=== PATIENT | female | born 1985 | race African-American/Black ===

== ENCOUNTER 2021-10-31 14:48 | Inpatient (IN) | payer BC, MEDICAID ==
[~2021-10-31] VITALS: Ht 162.6 cm; Wt 120.6 kg
[2021-10-31] MEDS ORDERED: MORPHINE SULFATE 4 MG/ML SYR/VIAL IV ONE (18:00)
[2021-10-31] MEDS ORDERED: ONDANSETRON HCL 4 MG/2 ML VIAL IV ONE (18:00)
[2021-10-31 18:24] LABS: Basophils # (auto) 0.1 10 ^3/uL (0-0.2); Hemoglobin 12.1 g/dL (12.2-16.2)
[2021-10-31 18:27] LABS: Basophils % (auto) 0.8 % (0.0-2.0); Eosinophils # (auto) 0 10 ^3/uL (0-0.8); Eosinophils % (auto) 0.5 % (0.0-7.0); Hematocrit 37.2 % (36.0-46.0); Lymphocytes # (auto) 1.4 10 ^3/uL (0.4-5.4); Lymphocytes % (auto) 15.1 % (10.0-50.0); Mean Corpuscular Hemoglobin 25.2 pg (28.0-32.0); Mean Corpuscular Hgb Conc. 32.7 g/dL (32.0-36.0); Mean Corpuscular Volume 77.2 fL (80.0-100.0); Monocytes # (auto) 0.8 10 ^3/uL (0-1.3); Monocytes % (auto) 8.7 % (0.0-12.0); Neutrophils % (auto) 74.9 % (37.0-80.0); Red Blood Cells 4.82 10^6/uL (4.0-5.20); Red Cell Distribution Width 18.5 % (11.8-14.3); White Blood Cell 9.3 10^3/uL (4.4-10.8)
[2021-10-31 18:38] LABS: BUN/Creatinine Ratio 34.1; Calcium 9.8 mg/dL (8.5-10.1); Potassium 3.9 mmol/L (3.5-5.1)
[2021-10-31 19:16] LABS: INR 1.12 (0.9-1.15)
[2021-10-31] MEDS ORDERED: FAMO20TA10 GT (19:59)
[2021-10-31] MEDS ORDERED: METO25TA5 PO (19:59)
[2021-10-31] MEDS ORDERED: INSU100I51 SC (19:59)
[2021-10-31] MEDS ORDERED: HYD1TP TOP (19:59)
[2021-10-31] MEDS ORDERED: PANC1CAP PO (19:59)
[2021-10-31] MEDS ORDERED: PREG100C PO (19:59)
[2021-10-31] MEDS ORDERED: ONDANSETRON HCL 4 MG/2 ML VIAL IV PRN (21:00)
[2021-10-31] MEDS ORDERED: DEXTROSE (50%) 50ML SYRG IV PRN (21:00)
[2021-10-31 22:18] VITALS: BP 141/84
[2021-11-01] VITALS: BP 141/84
[2021-11-01] MEDS: ACCU-CHEK COMFORT CURVE STRIP VI SCH ×5 (00:16→23:40)
[2021-11-01] MEDS: SODIUM CHLORIDE 0.9% 1,000 ML IV SCH ×3 (00:17→21:40)
[2021-11-01] MEDS ORDERED: MORPHINE SULFATE INJECTION 2 MG/ML SYRG IV ONE (02:15)
[2021-11-01 05:00] VITALS: BP 132/84
[2021-11-01] MEDS: InsuLIN REG 1unit/0.01ml Soln (100units/ml) SC SCH ×5 (05:12→23:40)
[2021-11-01] MEDS ORDERED: OXY5T GT (05:28)
[2021-11-01] MEDS ORDERED: GLYC1SOL PO (05:28)
[2021-11-01] MEDS ORDERED: PRED10TA PO (05:28)
[2021-11-01] MEDS ORDERED: PETROIN22 EX (05:28)
[2021-11-01] MEDS ORDERED: SENN-199 PO (05:28)
[2021-11-01] MEDS ORDERED: METO-158 PO (05:28)
[2021-11-01] MEDS ORDERED: SCOP1DIS9 TD (05:28)
[2021-11-01] MEDS ORDERED: LIDOCAINE VISCOUS 2% 15ML UD ONE (08:44)
[2021-11-01] MEDS ORDERED: diphenhdrAMINE HCL 50 MG/1 ML VL ONE (08:44)
[2021-11-01 09:00] VITALS: BP 132/77
[2021-11-01 09:41] LABS: Urine Amorphous Crystal FEW /hpf (None Seen); Urine Bacteria NONE SEEN /hpf (None Seen); Urine Blood Negative /uL (Negative); Urine Specific Gravity 1.019 (1.001-1.035); Urine WBC 14 /hpf (0 - 5)
[2021-11-01] MEDS: PANTOPRAZOLE 40 MG/10 ML VIAL INJ IV SCH (10:43)
[2021-11-01] MEDS ORDERED: cefTRIAXone 1GM/50ML D5W 50 ML IV ONE (12:00)
[2021-11-01 13:00] VITALS: BP 131/79
[2021-11-01] MEDS ORDERED: MORPHINE SULFATE INJECTION 2 MG/ML SYRG IV PRN (13:15)
[2021-11-01] MEDS ORDERED: ceFAZolin 1GM/50ML 50 ML IV ONE (13:17)
[2021-11-01] MEDS: MIDAZOLAM HCL 5 MG/ML-1ML VIAL ONE ×3 (13:32→13:43)
[2021-11-01] MEDS: fentaNYL CITRATE 100 MCG/2 ML VL ONE ×3 (13:32→13:43)
[2021-11-01] MEDS: PREGABALIN 25 MG CAP GT SCH ×2 (14:00→21:41)
[2021-11-01] MEDS ORDERED: METOPROLOL TARTRATE 1MG/1ML-5ML VIAL IV SCH (16:45)
[2021-11-01 16:49] VITALS: BP 133/82
[2021-11-01] MEDS: PANCREATIC ENZYMES 4200 UNIT CAP PO SCH (17:53)
[2021-11-01] MEDS: DexAMETHasone SOD PHOS 4 MG/1ML SDV INJ IV SCH (19:01)
[2021-11-01] MEDS: MORPHINE SULFATE INJECTION 2 MG/ML SYRG IV PRN (19:03)
[2021-11-01] MEDS: METOPROLOL TARTRATE 1MG/1ML-5ML VIAL IV SCH (21:38)
[2021-11-01] MEDS: HYDROCORTONE 1% TOPICAL CREAM 30 GM TUBE TOP SCH (21:39)
[2021-11-01 22:00] VITALS: BP 132/84
[2021-11-01] MEDS ORDERED: METOPROLOL TARTRATE 50 MG TAB GT SCH (22:00)
[2021-11-02 04:59] VITALS: BP 132/87
[2021-11-02] MEDS: ACCU-CHEK COMFORT CURVE STRIP VI SCH ×4 (05:30→23:46)
[2021-11-02] MEDS: InsuLIN REG 1unit/0.01ml Soln (100units/ml) SC SCH ×4 (05:30→23:46)
[2021-11-02] MEDS: PREGABALIN 25 MG CAP GT SCH ×3 (06:00→21:44)
[2021-11-02] MEDS: PANCREATIC ENZYMES 4200 UNIT CAP PO SCH ×3 (08:00→18:54)
[2021-11-02] MEDS: cefTRIAXone 1GM/50ML D5W 50 ML IV SCH (08:40)
[2021-11-02] MEDS: PANTOPRAZOLE 40 MG/10 ML VIAL INJ IV SCH (08:40)
[2021-11-02] MEDS: DexAMETHasone SOD PHOS 4 MG/1ML SDV INJ IV SCH (08:40)
[2021-11-02 09:00] VITALS: BP 133/89
[2021-11-02] MEDS: METOPROLOL TARTRATE 1MG/1ML-5ML VIAL IV SCH ×2 (09:30→21:43)
[2021-11-02] MEDS ORDERED: predniSONE 5 MG TAB GT SCH (10:00)
[2021-11-02] MEDS: SODIUM CHLORIDE 0.9% 1,000 ML IV SCH ×2 (10:00→23:09)
[2021-11-02] MEDS: HYDROCORTONE 1% TOPICAL CREAM 30 GM TUBE TOP SCH ×2 (10:03→21:44)
[2021-11-02 13:00] VITALS: BP 137/95
[2021-11-02] MEDS: Glucerna 1.2 Cal 1Liter BOTTLE GT SCH ×2 (14:11→21:44)
[2021-11-02 16:50] VITALS: BP 130/82
[2021-11-02 22:00] VITALS: BP 144/95
[2021-11-03] MEDS: MORPHINE SULFATE INJECTION 2 MG/ML SYRG IV PRN ×2 (04:39→21:11)
[2021-11-03 05:00] VITALS: BP 142/88
[2021-11-03] MEDS: ACCU-CHEK COMFORT CURVE STRIP VI SCH ×4 (05:39→23:41)
[2021-11-03] MEDS: Glucerna 1.2 Cal 1Liter BOTTLE GT SCH ×3 (05:39→21:42)
[2021-11-03] MEDS: PREGABALIN 25 MG CAP GT SCH ×3 (05:39→21:42)
[2021-11-03] MEDS: InsuLIN REG 1unit/0.01ml Soln (100units/ml) SC SCH ×4 (05:40→23:41)
[2021-11-03 09:00] VITALS: BP 137/77
[2021-11-03] MEDS: PANCREATIC ENZYMES 4200 UNIT CAP PO SCH ×4 (09:37→21:41)
[2021-11-03] MEDS: cefTRIAXone 1GM/50ML D5W 50 ML IV SCH (09:37)
[2021-11-03] MEDS: DexAMETHasone SOD PHOS 4 MG/1ML SDV INJ IV SCH (09:38)
[2021-11-03] MEDS: METOPROLOL TARTRATE 1MG/1ML-5ML VIAL IV SCH ×2 (09:39→21:41)
[2021-11-03] MEDS: HYDROCORTONE 1% TOPICAL CREAM 30 GM TUBE TOP SCH ×2 (09:39→22:19)
[2021-11-03] MEDS: SODIUM CHLORIDE 0.9% 1,000 ML IV SCH (12:30)
[2021-11-03 12:33] VITALS: BP 126/92
[2021-11-03 17:00] VITALS: BP 123/76
[2021-11-03] MEDS ORDERED: ACETAMINOPHEN 500 MG TAB PO PRN (18:15)
[2021-11-03] MEDS ORDERED: LACTULOSE 20Gm/30ML SOLN PEG ONE (18:15)
[2021-11-03 22:00] VITALS: BP 141/95
[2021-11-04] MEDS: SODIUM CHLORIDE 0.9% 1,000 ML IV SCH ×2 (00:21→13:04)
[2021-11-04 04:53] VITALS: BP 120/78
[2021-11-04] MEDS: InsuLIN REG 1unit/0.01ml Soln (100units/ml) SC SCH ×3 (06:00→17:22)
[2021-11-04] MEDS: Glucerna 1.2 Cal 1Liter BOTTLE GT SCH ×3 (06:00→22:57)
[2021-11-04] MEDS: PREGABALIN 25 MG CAP GT SCH ×3 (06:00→22:57)
[2021-11-04] MEDS: ACCU-CHEK COMFORT CURVE STRIP VI SCH ×4 (06:01→23:57)
[2021-11-04 09:00] VITALS: BP 124/89
[2021-11-04] MEDS: cefTRIAXone 1GM/50ML D5W 50 ML IV SCH (09:03)
[2021-11-04] MEDS: DexAMETHasone SOD PHOS 4 MG/1ML SDV INJ IV SCH (09:03)
[2021-11-04] MEDS: METOPROLOL TARTRATE 1MG/1ML-5ML VIAL IV SCH ×2 (09:03→22:58)
[2021-11-04] MEDS: HYDROCORTONE 1% TOPICAL CREAM 30 GM TUBE TOP SCH ×2 (11:11→22:58)
[2021-11-04 13:00] VITALS: BP 119/83
[2021-11-04] MEDS: MORPHINE SULFATE INJECTION 2 MG/ML SYRG IV PRN ×2 (13:01→22:30)
[2021-11-04] MEDS: PANCREATIC ENZYMES 4200 UNIT CAP PO SCH ×2 (13:03→13:20)
[2021-11-04] MEDS ORDERED: levoFLOXacin 500MG 100 ML IV ONE (16:15)
[2021-11-04 17:00] VITALS: BP 124/88
[2021-11-04 20:00] VITALS: BP 133/83
[2021-11-04 21:51] VITALS: BP 133/83
[2021-11-05] MEDS: SODIUM CHLORIDE 0.9% 1,000 ML IV SCH ×2 (01:00→06:00)
[2021-11-05 04:49] VITALS: BP 141/87
[2021-11-05] MEDS: InsuLIN REG 1unit/0.01ml Soln (100units/ml) SC SCH ×3 (05:48→12:00)
[2021-11-05] MEDS: ACCU-CHEK COMFORT CURVE STRIP VI SCH ×2 (05:48→15:10)
[2021-11-05] MEDS: PREGABALIN 25 MG CAP GT SCH ×2 (06:07→13:00)
[2021-11-05] MEDS: Glucerna 1.2 Cal 1Liter BOTTLE GT SCH ×2 (06:07→14:00)
[2021-11-05 06:32] LABS: Eosinophils # (auto) 0 10 ^3/uL (0-0.8); Hemoglobin 10.7 g/dL (12.2-16.2); Lymphocytes # (auto) 1.3 10 ^3/uL (0.4-5.4)
[2021-11-05 06:36] LABS: Basophils # (auto) 0.1 10 ^3/uL (0-0.2); Basophils % (auto) 0.7 % (0.0-2.0); Eosinophils % (auto) 0.3 % (0.0-7.0); Hematocrit 32.9 % (36.0-46.0); Mean Corpuscular Hemoglobin 25.9 pg (28.0-32.0); Mean Corpuscular Hgb Conc. 32.4 g/dL (32.0-36.0); Mean Corpuscular Volume 79.8 fL (80.0-100.0); Monocytes # (auto) 0.8 10 ^3/uL (0-1.3); Monocytes % (auto) 11.3 % (0.0-12.0); Neutrophils # (auto) 5.3 10 ^3/uL (1.6-8.6); Neutrophils % (auto) 70.7 % (37.0-80.0); Nucleated Red Blood Cells % 0.1 %; Red Blood Cells 4.12 10^6/uL (4.0-5.20); Red Cell Distribution Width 17.8 % (11.8-14.3); White Blood Cell 7.5 10^3/uL (4.4-10.8)
[2021-11-05 06:43] LABS: Calcium 8.8 mg/dL (8.5-10.1); Potassium 3.2 mmol/L (3.5-5.1)
[2021-11-05 06:47] LABS: Albumin 2.6 g/dL (3.4-5.0)
[2021-11-05 07:06] LABS: Bilirubin, Total 0.3 mg/dL (0.2-1.0); Total Protein 5.9 g/dL (6.4-8.2)
[2021-11-05] MEDS ORDERED: LEVO500T31 PO (08:12)
[2021-11-05] MEDS ORDERED: PREG75CA PO (08:16)
[2021-11-05] MEDS: PANCREATIC ENZYMES 4200 UNIT CAP PO SCH ×2 (08:18→12:25)
[2021-11-05] MEDS ORDERED: PANC1CAP PO (08:19)
[2021-11-05] MEDS ORDERED: FAMO20TA10 PO (08:19)
[2021-11-05] MEDS ORDERED: METO25TA5 PO (08:19)
[2021-11-05] MEDS: METOPROLOL TARTRATE 1MG/1ML-5ML VIAL IV SCH (08:19)
[2021-11-05] MEDS ORDERED: PRED10TA PO (08:19)
[2021-11-05] MEDS: DexAMETHasone SOD PHOS 4 MG/1ML SDV INJ IV SCH (08:19)
[2021-11-05] MEDS ORDERED: OXY5T GT (08:19)
[2021-11-05 08:35] VITALS: BP 118/76
[2021-11-05] MEDS ORDERED: POTASSIUM EFFERVESENT TAB 25 MEQ GT ONE (08:45)
[2021-11-05] MEDS: HYDROCORTONE 1% TOPICAL CREAM 30 GM TUBE TOP SCH (09:39)
[2021-11-05] MEDS ORDERED: levoFLOXacin 500MG 100 ML IV SCH (10:00)
[2021-11-05 10:39] VITALS: BP 118/70
[2021-11-05 12:27] VITALS: BP 115/87
== END 2021-11-05 13:35 | disposition home or self-care (01) | DRG 393 ==
LOC: ER 14:48 → OVERFLOW 21:00 → CENTRAL 22:18 → TELE-CENTR 11-01 18:16
PROVIDERS: ADMIT Nurse Practitioner; ATTEND Family Medicine
PROC: 0DH63UZ Insertion of Feeding Device into Stomach, Percutaneous Approach (ICD-10-PCS; principal; 2021-11-01 13:27)
DX: Z43.1 Encounter for attention to gastrostomy (principal); E43 Unspecified severe protein-calorie malnutrition; L89.93 Pressure ulcer of unspecified site, stage 3; N39.0 Urinary tract infection, site not specified; Z68.42 Body mass index [BMI] 45.0-49.9, adult; G35 Multiple sclerosis; E11.9 Type 2 diabetes mellitus without complications; B95.2 Enterococcus as the cause of diseases classified elsewhere; I10 Essential (primary) hypertension; I95.9 Hypotension, unspecified; Z20.822 Contact with and (suspected) exposure to COVID-19; Z74.01 Bed confinement status; Z80.9 Family history of malignant neoplasm, unspecified
CPT/HCPCS: 36415; 43246; 71045; 80048; 80053; 81001; 82962; 84443; 84702; 85025; 85610; 86850; 86900; 86901; 87081; 87086; 87088; 87186; 93005; 96374; 96375; 97110; 97163; 97530; C9113; G0378; J0690; J0696; J1100; J1956; J2250; J2405

== ENCOUNTER 2021-12-30 10:51 | Inpatient (IN) | payer BC, MEDICAID ==
[~2021-12-30] VITALS: Ht 162.6 cm; Wt 45.5 kg
[~2021-12-30 10:51] MED LIST: FAMO20TA10 GT; FAMO20TA10 PO; GLYC1SOL PO; HYD1TP TOP; INSU100I51 SC; LEVO500T31 PO; METO-158 PO; METO25TA5 PO; OXY5T GT; PANC1CAP PO; PETROIN22 EX; PRED10TA PO; PREG100C PO; PREG75CA PO; SCOP1DIS9 TD; SENN-199 PO
[2021-12-30] MEDS ORDERED: MORPHINE SULFATE 4 MG/ML SYR/VIAL IV ONE ×2 (11:15→21:00)
[2021-12-30] MEDS ORDERED: ONDANSETRON HCL 4 MG/2 ML VIAL IV ONE (11:15)
[2021-12-30] MEDS ORDERED: SODIUM CHLORIDE 0.9% 1,000 ML IVB ONE (11:15)
[2021-12-30 11:54] LABS: Eosinophils # (auto) 0.2 10 ^3/uL (0-0.8); Monocytes # (auto) 0.6 10 ^3/uL (0-1.3)
[2021-12-30 11:57] LABS: Basophils # (auto) 0.1 10 ^3/uL (0-0.2); Basophils % (auto) 0.9 % (0.0-2.0); Hematocrit 35.1 % (36.0-46.0); Hemoglobin 11.9 g/dL (12.2-16.2); Lymphocytes # (auto) 1.1 10 ^3/uL (0.4-5.4); Lymphocytes % (auto) 18.8 % (10.0-50.0); Mean Corpuscular Hemoglobin 26.5 pg (28.0-32.0); Mean Corpuscular Hgb Conc. 33.8 g/dL (32.0-36.0); Mean Corpuscular Volume 78.4 fL (80.0-100.0); Neutrophils % (auto) 67.3 % (37.0-80.0); Red Blood Cells 4.47 10^6/uL (4.0-5.20)
[2021-12-30 12:22] LABS: Potassium 4.3 mmol/L (3.5-5.1)
[2021-12-30 12:29] LABS: Albumin 3.2 g/dL (3.4-5.0); BUN/Creatinine Ratio 45.5; Bilirubin, Total 0.3 mg/dL (0.2-1.0); Calcium 9.3 mg/dL (8.5-10.1); Total Protein 7.1 g/dL (6.4-8.2)
[2021-12-30 13:08] LABS: Urine Bacteria NONE SEEN /hpf (None Seen); Urine Blood Negative /uL (Negative); Urine Specific Gravity 1.011 (1.001-1.035); Urine WBC <1 /hpf (0 - 5)
[2021-12-30] MEDS ORDERED: HYDROmorphone HCL 2 MG/ML VL/or syr IV PRN (14:00)
[2021-12-30] MEDS ORDERED: MORPHINE SULFATE INJ 2 MG/ml SYRG IV PRN (15:00)
[2021-12-30] MEDS ORDERED: ACETAMINOPHEN 325 MG TAB PO PRN (15:00)
[2021-12-30] MEDS ORDERED: ONDANSETRON HCL 4 MG/2 ML VIAL IV PRN ×2 (15:00→21:00)
[2021-12-30] MEDS ORDERED: NITROGLYCERIN 0.4 MG SL TAB SL PRN (15:00)
[2021-12-30] MEDS: MORPHINE SULFATE INJ 2 MG/ml SYRG IV PRN ×2 (15:19→19:01)
[2021-12-30] MEDS: SODIUM CHLORIDE 0.9% 1,000 ML IV SCH ×2 (15:34→23:22)
[2021-12-31] MEDS ORDERED: MORPHINE SULFATE 4 MG/ML SYR/VIAL IV ONE (05:30)
[2021-12-31 07:39] LABS: Basophils # (auto) 0 10 ^3/uL (0-0.2); Basophils % (auto) 0.6 % (0.0-2.0); Eosinophils # (auto) 0.2 10 ^3/uL (0-0.8); Mean Corpuscular Volume 79.8 fL (80.0-100.0); White Blood Cell 4.9 10^3/uL (4.4-10.8)
[2021-12-31 07:41] LABS: Eosinophils % (auto) 3.3 % (0.0-7.0); Hematocrit 33.2 % (36.0-46.0); Hemoglobin 10.8 g/dL (12.2-16.2); Lymphocytes # (auto) 1.2 10 ^3/uL (0.4-5.4); Lymphocytes % (auto) 23.6 % (10.0-50.0); Mean Corpuscular Hemoglobin 26.1 pg (28.0-32.0); Mean Corpuscular Hgb Conc. 32.7 g/dL (32.0-36.0); Monocytes # (auto) 0.6 10 ^3/uL (0-1.3); Monocytes % (auto) 12.1 % (0.0-12.0); Neutrophils % (auto) 60.4 % (37.0-80.0); Red Blood Cells 4.16 10^6/uL (4.0-5.20); Red Cell Distribution Width 20.1 % (11.8-14.3)
[2021-12-31 07:52] LABS: Calcium 9.1 mg/dL (8.5-10.1); Potassium 4.1 mmol/L (3.5-5.1)
[2021-12-31 07:56] LABS: Bilirubin, Total 0.3 mg/dL (0.2-1.0); Total Protein 6.4 g/dL (6.4-8.2)
[2021-12-31] MEDS: SODIUM CHLORIDE 0.9% 1,000 ML IV SCH (08:39)
[2021-12-31] MEDS: HYDROmorphone HCL 2 MG/ML VL/or syr IV PRN ×2 (09:31→13:19)
[2021-12-31] MEDS ORDERED: ENOXAPARIN SOD 40 MG/0.4 ML SYRINGE SC SCH (10:00)
[2021-12-31] MEDS ORDERED: VANCOMYCIN PER PHARMACY 0 MG IV SCH ×2 (10:30)
[2021-12-31] MEDS ORDERED: VANCOMYCIN 750mg/250ml 250 ML IV ONE (11:00)
[2021-12-31 15:00] VITALS: BP 103/76
[2021-12-31] MEDS ORDERED: VANCOMYCIN 750mg/250ml 250 ML IV SCH (21:00)
== END 2021-12-31 15:12 | disposition short-term general hospital (02) | DRG 43 ==
LOC: ER 10:51 → TELE 14:48
PROVIDERS: ADMIT Internal Medicine; ATTEND Internal Medicine
DX: G35 Multiple sclerosis (principal); G93.40 Encephalopathy, unspecified; E46 Unspecified protein-calorie malnutrition; G82.50 Quadriplegia, unspecified; E88.09 Other disorders of plasma-protein metabolism, not elsewhere classified; H46.9 Unspecified optic neuritis; R13.10 Dysphagia, unspecified; Z20.822 Contact with and (suspected) exposure to COVID-19; R47.01 Aphasia; Z74.01 Bed confinement status; Z80.3 Family history of malignant neoplasm of breast; Z93.1 Gastrostomy status; B96.89 Other specified bacterial agents as the cause of diseases classified elsewhere
CPT/HCPCS: 36415; 70450; 71045; 80053; 81001; 82962; 83605; 85025; 87040; 87077; 87186; 96361; 96365; 96372; 96375; 96376; G0378; J2405

== ENCOUNTER 2022-03-30 09:07 | Day surgery (SDC) | payer MEDICAID ==
[2022-03-23 14:56] LABS: Basophils # (auto) 0.1 10 ^3/uL (0-0.2); Basophils % (auto) 1.4 % (0.0-2.0); Eosinophils # (auto) 0.2 10 ^3/uL (0-0.8); Eosinophils % (auto) 4.1 % (0.0-7.0); Hematocrit 37.3 % (36.0-46.0); Hemoglobin 11.8 g/dL (12.2-16.2); Lymphocytes # (auto) 1.5 10 ^3/uL (0.4-5.4); Lymphocytes % (auto) 28.9 % (10.0-50.0); Mean Corpuscular Hemoglobin 28.6 pg (28.0-32.0); Mean Corpuscular Hgb Conc. 31.6 g/dL (32.0-36.0); Mean Corpuscular Volume 90.3 fL (80.0-100.0); Monocytes # (auto) 0.5 10 ^3/uL (0-1.3); Monocytes % (auto) 9.4 % (0.0-12.0); Neutrophils # (auto) 2.9 10 ^3/uL (1.6-8.6); Neutrophils % (auto) 56.2 % (37.0-80.0); Nucleated Red Blood Cells % 0.1 %; Red Blood Cells 4.13 10^6/uL (4.0-5.20); Red Cell Distribution Width 17.4 % (11.8-14.3); White Blood Cell 5.1 10^3/uL (4.4-10.8)
[2022-03-23 15:13] LABS: INR 1.03 (0.9-1.15); Partial Thromboplastin Time 29.3 sec (24.6-33.4)
[2022-03-23 15:22] LABS: Albumin 3.3 g/dL (3.4-5.0); BUN/Creatinine Ratio 48.9; Calcium 8.9 mg/dL (8.5-10.1); Potassium 3.9 mmol/L (3.5-5.1)
[2022-03-23 15:25] LABS: Bilirubin, Total 0.2 mg/dL (0.2-1.0); Total Protein 6.8 g/dL (6.4-8.2)
[~2022-03-30] VITALS: Ht 162.6 cm; Wt 47.6 kg
[~2022-03-30 09:07] MED LIST changes: +DIAZ2TAB2 PO; +DOCU100T23 PO; -FAMO20TA10 PO; +GABA400C PO; +GLYC1DRO OP; +HYDR-4902 PO; +HYDR2TAB58 PO; -INSU100I51 SC; -LEVO500T31 PO; -METO25TA5 PO; +NS45NSL; -OXY5T GT; -PRED10TA PO; -PREG100C PO; -PREG75CA PO; -SENN-199 PO; +TRAM50TA2 PO
[2022-03-30] MEDS ORDERED: diphenhdrAMINE HCL 50 MG/1 ML VL ONE (11:20)
[2022-03-30] MEDS ORDERED: SODIUM CHLORIDE LOCK 10 ML ONE (11:20)
[2022-03-30] MEDS ORDERED: LIDOCAINE VISCOUS 2% 15ML UD ONE (11:20)
[2022-03-30] MEDS ORDERED: ceFAZolin 1GM/50ML 50 ML IV ONE (11:50)
[2022-03-30] MEDS: MIDAZOLAM HCL 5 MG/ML-1ML VIAL ONE ×3 (12:07→12:15)
[2022-03-30] MEDS: fentaNYL CITRATE 100 MCG/2 ML VL ONE ×3 (12:07→12:15)
[2022-03-30 13:45] VITALS: BP 124/88
== END 2022-03-30 14:40 | disposition home or self-care (01) ==
LOC: GI 09:07
PROVIDERS: ATTEND Internal Medicine Gastroenterology
DX: R13.10 Dysphagia, unspecified (principal); K94.23 Gastrostomy malfunction; K29.50 Unspecified chronic gastritis without bleeding; F41.9 Anxiety disorder, unspecified; Z80.3 Family history of malignant neoplasm of breast; Z20.822 Contact with and (suspected) exposure to COVID-19
CPT/HCPCS: 36415; 43239; 43246; 80053; 84702; 85025; 85610; 85730; 88305; 88342; J0690; J1200; J2250; J3010; U0003; 99152

== ENCOUNTER 2022-03-31 13:21 | Emergency (ER) | payer MEDICAID | END 2022-03-31 14:38 | disposition home or self-care (01) | LOC: ER 13:21 | DX: K94.23 Gastrostomy malfunction (principal) ==

== ENCOUNTER 2022-08-05 09:57 | Emergency (ER) | payer MEDICAID ==
[~2022-08-05] VITALS: Ht 162.6 cm; Wt 50.0 kg
[2022-08-05] MEDS ORDERED: LIDOCAINE 2%HCL (LOCAL ANESTH.) INJ 10ml MDV ONE (12:46)
[2022-08-05] MEDS ORDERED: LIDOCAINE HCL 2% TOP JELLY 5ML TOP ONE (14:00)
[2022-08-05] MEDS ORDERED: LIDOCAINE 2% JELLY 11ml (GLYDO) ONE (14:49)
[2022-08-05] MEDS ORDERED: LIDOCAINE 2% JELLY 11ml (GLYDO) UR ONE (15:00)
[2022-08-05] MEDS ORDERED: GASTROGRAFIN 30 ML SOL ONE (15:21)
[2022-08-05] MEDS ORDERED: SODIENE35 RE (17:34)
[2022-08-05 17:46] VITALS: BP 144/104
== END 2022-08-05 17:52 | disposition home or self-care (01) ==
LOC: ER 09:57
DX: K94.23 Gastrostomy malfunction (principal); G35 Multiple sclerosis; G82.50 Quadriplegia, unspecified; Z79.899 Other long term (current) drug therapy
CPT/HCPCS: 43762; 74018; 99284; J2001; Q9963

== ENCOUNTER 2022-09-05 21:15 | Inpatient (IN) | payer MEDICAID ==
[~2022-09-05] VITALS: Ht 162.6 cm; Wt 47.0 kg
[~2022-09-05 21:15] MED LIST changes: +MET25T GT; -METO-158 PO; +PREG-111 PO; +QUET100T47 PO; +SODIENE35 RE
[2022-09-05] MEDS ORDERED: IOHEXOL 300 MG/ML 100ML BOTTLE IJ ONE (21:33)
[2022-09-05 22:32] LABS: Basophils # (auto) 0.1 10 ^3/uL (0-0.2); Basophils % (auto) 1.2 % (0.0-2.0); Eosinophils # (auto) 0.2 10 ^3/uL (0-0.8); Eosinophils % (auto) 3.6 % (0.0-7.0); Hematocrit 31.3 % (36.0-46.0); Hemoglobin 10.1 g/dL (12.2-16.2); Lymphocytes # (auto) 1.4 10 ^3/uL (0.4-5.4); Lymphocytes % (auto) 30.5 % (10.0-50.0); Mean Corpuscular Hemoglobin 26.8 pg (28.0-32.0); Mean Corpuscular Hgb Conc. 32.3 g/dL (32.0-36.0); Mean Corpuscular Volume 82.8 fL (80.0-100.0); Monocytes # (auto) 0.6 10 ^3/uL (0-1.3); Neutrophils # (auto) 2.4 10 ^3/uL (1.6-8.6); Neutrophils % (auto) 51.7 % (37.0-80.0); Red Blood Cells 3.77 10^6/uL (4.0-5.20); Red Cell Distribution Width 15.7 % (11.8-14.3); White Blood Cell 4.7 10^3/uL (4.4-10.8)
[2022-09-05 22:46] LABS: INR 1.1 (0.9-1.15); Partial Thromboplastin Time 29.5 sec (24.6-33.4)
[2022-09-05 22:50] LABS: Albumin 2.9 g/dL (3.4-5.0); Anion Gap 6 (5-15); Blood Urea Nitrogen 21 mg/dL (7-18); Calcium 8.1 mg/dL (8.5-10.1); Carbon Dioxide 28 mmol/L (21-32); Chloride 106 mmol/L (98-107); Glucose 83 mg/dL (74-106); Lipase 42 U/L (73-393); Potassium 3.8 mmol/L (3.5-5.1); Sodium 140 mmol/L (136-145)
[2022-09-05 22:54] LABS: Alanine Aminotransferase < 6 U/L (13-56); Alkaline Phosphatase 65 U/L (45-117); Aspartate Aminotransferase 11 U/L (15-37); BUN/Creatinine Ratio 40.4; Bilirubin, Total 0.3 mg/dL (0.2-1.0); GFR African American 172 mL/min; GFR Non-African American 142 mL/min
[2022-09-06] MEDS ORDERED: HYDROmorphone HCL 2 MG/ML VL/or syr IV ONE (00:15)
[2022-09-06] MEDS ORDERED: ONDANSETRON HCL 4 MG/2 ML VIAL IV ONE (00:15)
[2022-09-06] MEDS ORDERED: ONDANSETRON HCL 4 MG/2 ML VIAL IV PRN (01:15)
[2022-09-06 01:19] LABS: Basophils # (auto) 0.1 10 ^3/uL (0-0.2); Basophils % (auto) 1.5 % (0.0-2.0); Eosinophils # (auto) 0.2 10 ^3/uL (0-0.8); Hematocrit 32.9 % (36.0-46.0); Hemoglobin 10.6 g/dL (12.2-16.2); Lymphocytes # (auto) 1.6 10 ^3/uL (0.4-5.4); Lymphocytes % (auto) 28.2 % (10.0-50.0); Mean Corpuscular Hemoglobin 26.8 pg (28.0-32.0); Mean Corpuscular Hgb Conc. 32.3 g/dL (32.0-36.0); Mean Corpuscular Volume 82.8 fL (80.0-100.0); Monocytes # (auto) 0.7 10 ^3/uL (0-1.3); Neutrophils % (auto) 54.3 % (37.0-80.0); Nucleated Red Blood Cells % 0.1 %; Red Blood Cells 3.98 10^6/uL (4.0-5.20); Red Cell Distribution Width 16.1 % (11.8-14.3); White Blood Cell 5.5 10^3/uL (4.4-10.8)
[2022-09-06] MEDS: D5W/SOD CHLO 0.9% 1,000 ML IV SCH ×2 (01:35→14:38)
[2022-09-06] MEDS: MORPHINE SULFATE INJ 2 MG/ml SYRG IV PRN ×2 (06:20→15:35)
[2022-09-06] MEDS: PANTOPRAZOLE 40 MG/10 ML VIAL INJ IV SCH (09:44)
[2022-09-06] MEDS: GABAPENTIN 400 MG CAP GT SCH ×3 (09:44→19:30)
[2022-09-06] MEDS: ENOXAPARIN SOD 40 MG/0.4 ML SYRINGE SC SCH (09:44)
[2022-09-06] MEDS ORDERED: cefTRIAXone 1GM/50ML D5W 50 ML IV ONE (19:15)
[2022-09-07] MEDS: MORPHINE SULFATE INJ 2 MG/ml SYRG IV PRN (02:50)
[2022-09-07 04:43] VITALS: BP_SYST 140; BP_SYST 149; BP_DIAS 80; BP_DIAS 81
[2022-09-07] MEDS: D5W/SOD CHLO 0.9% 1,000 ML IV SCH ×2 (05:09→17:15)
[2022-09-07 05:19] LABS: BUN/Creatinine Ratio 44.7; Calcium 8.7 mg/dL (8.5-10.1); Potassium 4.1 mmol/L (3.5-5.1)
[2022-09-07] MEDS ORDERED: GABAPENTIN 400 MG CAP PO ONE (06:00)
[2022-09-07 09:18] VITALS: BP 113/63
[2022-09-07] MEDS: ENOXAPARIN SOD 40 MG/0.4 ML SYRINGE SC SCH (10:18)
[2022-09-07] MEDS: PANTOPRAZOLE 40 MG/10 ML VIAL INJ IV SCH (10:18)
[2022-09-07 12:49] VITALS: BP 127/57
[2022-09-07] MEDS: GABAPENTIN 400 MG CAP GT SCH ×2 (13:07→22:54)
[2022-09-07] MEDS: PREGABALIN CAPSULE 75 MG CAP PO SCH ×2 (13:08→22:55)
[2022-09-07 16:49] VITALS: BP 129/68
[2022-09-07 22:00] VITALS: BP 131/72
[2022-09-07] MEDS: DOCUSATE SOD 100 MG CAP PO SCH (22:00)
[2022-09-07] MEDS: HYDROCORTONE 1% TOPICAL CREAM 30 GM TUBE TOP SCH (22:54)
[2022-09-08 05:00] VITALS: BP 124/70
[2022-09-08] MEDS: D5W/SOD CHLO 0.9% 1,000 ML IV SCH ×3 (07:15→11:08)
[2022-09-08] MEDS: PREGABALIN CAPSULE 75 MG CAP PO SCH ×3 (07:15→22:19)
[2022-09-08] MEDS: GABAPENTIN 400 MG CAP GT SCH ×3 (07:15→22:19)
[2022-09-08 08:51] VITALS: BP 136/75
[2022-09-08] MEDS: DOCUSATE SOD 100 MG CAP PO SCH ×3 (10:00→22:19)
[2022-09-08] MEDS: PANTOPRAZOLE 40 MG/10 ML VIAL INJ IV SCH (10:18)
[2022-09-08] MEDS: ENOXAPARIN SOD 40 MG/0.4 ML SYRINGE SC SCH (10:19)
[2022-09-08] MEDS: HYDROCORTONE 1% TOPICAL CREAM 30 GM TUBE TOP SCH ×2 (10:23→22:19)
[2022-09-08] MEDS ORDERED: HYDROcodone-ACET 5/325MG TAB PO PRN (11:30)
[2022-09-08 13:00] VITALS: BP 96/53
[2022-09-08] MEDS ORDERED: MIDAZOLAM HCL 2MG/2ML 2ml VIAL (1mg/ml) ONE (14:01)
[2022-09-08] MEDS ORDERED: fentaNYL CITRATE 100 MCG/2 ML VL ONE (14:05)
[2022-09-08] MEDS ORDERED: PROPOFOL 10 MG/ML 20 ML IV ONE (14:28)
[2022-09-08] MEDS ORDERED: ONDANSETRON HCL 4 MG/2 ML VIAL IV PRN (14:45)
[2022-09-08] MEDS ORDERED: ceFAZolin 1GM VL ONE (15:09)
[2022-09-08 17:00] VITALS: BP 102/63
[2022-09-08 22:00] VITALS: BP 128/72
[2022-09-08] MEDS: QUEtiapine FUMARATE 25 MG TAB GT SCH (22:18)
[2022-09-09] MEDS: MORPHINE SULFATE INJ 2 MG/ml SYRG IV PRN (02:17)
[2022-09-09 05:00] VITALS: BP 122/72
[2022-09-09] MEDS: GABAPENTIN 400 MG CAP GT SCH ×3 (06:17→22:42)
[2022-09-09] MEDS: PREGABALIN CAPSULE 75 MG CAP PO SCH ×3 (06:17→22:42)
[2022-09-09 08:30] VITALS: BP 90/65
[2022-09-09] MEDS: DOCUSATE SOD 100 MG CAP PO SCH ×2 (09:16→22:00)
[2022-09-09] MEDS: PANTOPRAZOLE 40 MG/10 ML VIAL INJ IV SCH (09:25)
[2022-09-09] MEDS: ENOXAPARIN SOD 40 MG/0.4 ML SYRINGE SC SCH (09:25)
[2022-09-09] MEDS: HYDROCORTONE 1% TOPICAL CREAM 30 GM TUBE TOP SCH ×2 (09:26→22:42)
[2022-09-09 12:30] VITALS: BP 104/69
[2022-09-09 17:00] VITALS: BP 113/65
[2022-09-09 22:00] VITALS: BP 106/75
[2022-09-09] MEDS: QUEtiapine FUMARATE 25 MG TAB GT SCH (22:42)
[2022-09-09] MEDS: D5W/SOD CHLO 0.9% 1,000 ML IV SCH (22:43)
[2022-09-10 05:00] VITALS: BP 109/61
[2022-09-10] MEDS: GABAPENTIN 400 MG CAP GT SCH ×2 (06:00→06:57)
[2022-09-10] MEDS: PREGABALIN CAPSULE 75 MG CAP PO SCH (06:57)
[2022-09-10 09:00] VITALS: BP 105/64
[2022-09-10] MEDS: ENOXAPARIN SOD 40 MG/0.4 ML SYRINGE SC SCH (09:30)
[2022-09-10] MEDS: PANTOPRAZOLE 40 MG/10 ML VIAL INJ IV SCH (09:30)
[2022-09-10] MEDS: DOCUSATE SOD 100 MG CAP PO SCH (09:31)
[2022-09-10] MEDS: HYDROCORTONE 1% TOPICAL CREAM 30 GM TUBE TOP SCH (09:31)
[2022-09-10] MEDS: D5W/SOD CHLO 0.9% 1,000 ML IV SCH (11:59)
[2022-09-10] MEDS ORDERED: HYDROcodone-ACET 5/325MG TAB GT PRN (12:00)
== END 2022-09-10 14:15 | disposition home health service (06) | DRG 222 ==
LOC: EDBD 21:15 → ER 21:18 → OVERFLOW 09-06 01:12 → WEST WING 09-06 21:09
PROVIDERS: ADMIT Nurse Practitioner; ATTEND Internal Medicine
PROC: 0DP63UZ Removal of Feeding Device from Stomach, Percutaneous Approach (ICD-10-PCS; 2022-09-08)
PROC: 0DH63UZ Insertion of Feeding Device into Stomach, Percutaneous Approach (ICD-10-PCS; 2022-09-08)
PROC: 0DB68ZX Excision of Stomach, Via Natural or Artificial Opening Endoscopic, Diagnostic (ICD-10-PCS; principal; 2022-09-08 13:59)
PROC: 05HY33Z Insertion of Infusion Device into Upper Vein, Percutaneous Approach (ICD-10-PCS; 2022-09-10)
DX: K94.23 Gastrostomy malfunction (principal); E44.0 Moderate protein-calorie malnutrition; E83.51 Hypocalcemia; D63.8 Anemia in other chronic diseases classified elsewhere; G35 Multiple sclerosis; E86.0 Dehydration; D25.9 Leiomyoma of uterus, unspecified; G89.4 Chronic pain syndrome; K29.80 Duodenitis without bleeding; R79.89 Other specified abnormal findings of blood chemistry; Z20.822 Contact with and (suspected) exposure to COVID-19; K29.90 Gastroduodenitis, unspecified, without bleeding; Y83.3 Surgical operation with formation of external stoma as the cause of abnormal reaction of the patient, or of later complication, without mention of misadventure at the time of the procedure; Z68.1 Body mass index [BMI] 19.9 or less, adult; Z80.3 Family history of malignant neoplasm of breast; Y92.89 Other specified places as the place of occurrence of the external cause
CPT/HCPCS: 36415; 71045; 74177; 80048; 80053; 82553; 83605; 83690; 84484; 84702; 85025; 85610; 85730; 87081; 87426; 96372; 96374; C9113; G0378; J0690; J0696; J2250; J2405; J2704

== ENCOUNTER 2023-09-05 08:52 | Emergency (ER) | payer MEDICAID ==
[~2023-09-05] VITALS: Ht 167.6 cm; Wt 55.0 kg
[2023-09-05 10:45] VITALS: PULSE 99; RESP 18; O2SAT 95
[2023-09-05 10:59] VITALS: TEMP 98.7
[2023-09-05] MEDS: GASTROGRAFIN 30 ML SOL ONE (11:43)
[2023-09-05 13:10] VITALS: BP 107/66; PULSE 95; RESP 18; O2SAT 95
== END 2023-09-05 13:37 | disposition home or self-care (01) ==
LOC: ER 08:52
DX: G35 Multiple sclerosis (principal); Z46.59 Encounter for fitting and adjustment of other gastrointestinal appliance and device
CPT/HCPCS: 74018; 99283; Q9963